=== PATIENT | female | born 1945 | race Caucasian/White ===

== ENCOUNTER 2023-12-25 02:10 | Inpatient (IN) ==
[2023-12-25 02:45] LABS: ABS Basophils 0.1 10^3/uL (0.0-0.1); ABS Lymphocytes 0.7 10^3/uL (1.0-4.8); ABS Monocytes 0.4 10^3/uL (0.0-0.9); ABS Neutrophils 8.9 10^3/uL (1.5-7.6); ABS Nucleated RBC 0.02 10^3/ul; Eosinophil % 0.4 %; Hematocrit 39.7 % (35-45); Hemoglobin 13.6 g/dL (11.5-14.3); Lymphocyte % 6.9 %; Mean Corpuscular Hemoglobin 31.5 pg (27-33); Mean Corpuscular Hgb Conc 34.3 g/dL (31-36); Mean Corpuscular Volume 91.8 fL (80-97); Mean Platelet Volume 8.8 fL (7.5-11.2); Nucleated Red Blood Cells % 0.2 %/100WBC (0.0-0.8); Platelet Count 311 10^3/uL (150-450); Red Blood Count 4.33 10^6/uL (3.63-4.92); Red Cell Distribution Width 13.6 % (12-17)
[2023-12-25 03:03] LABS: Albumin 4.5 g/dL (3.2-5.2); Albumin/Globulin Ratio 1.6 (1-3); C Reactive Protein 1.93 mg/L (<8.01); Creatinine, Serum 0.93 mg/dL (0.51-0.95); Globulin 2.9 g/dL (2-4); Total Bilirubin 0.4 mg/dL (0.2-1.0); Total Protein 7.4 g/dL (6.4-8.9); eGFR CKD-EPI 63.3 (>60)
[2023-12-25] MEDS: Famotidine IV 10 MG/ML 2 ml VIAL (20 mg) IV SLOW PU ONE (03:31)
[2023-12-25] MEDS: Lactated Ringers 1000 ml BAG 1,000 ML IV ONE (03:32)
[2023-12-25] MEDS: Ondansetron 4 mg VIAL 2 MG/ML 2 ml VIAL IV ONE (03:32)
[2023-12-25] MEDS: Iohexol 350 (CONTRAST) 500 ML MDV IV ONE (04:41)
[2023-12-25] MEDS ORDERED: Ondansetron 4 mg VIAL 2 MG/ML 2 ml VIAL IV PRN (08:06)
[2023-12-25] MEDS ORDERED: Morphine 2 MG/ML SYRINGE IV PRN (08:06)
[2023-12-25] MEDS: Lactated Ringers 1000 ml BAG 1,000 ML IV SCH (08:52)
[2023-12-26] MEDS ORDERED: Propofol 10 MG/ML 20 ML BTL ONE ×2 (10:12→14:04)
[2023-12-26] MEDS ORDERED: Dexamethasone IV 4 MG/ML VIAL 1 ml VIAL ONE (10:12)
[2023-12-26] MEDS ORDERED: Ondansetron 4 mg VIAL 2 MG/ML 2 ml VIAL ONE (10:12)
[2023-12-26] MEDS ORDERED: ROPIVACAINE 5 MG/ML 30 ML BTL (0.5%) ONE (10:12)
[2023-12-26] MEDS ORDERED: fentaNYL 250 mcg/5 ml 50 MCG/ML 5 ml VIAL (250 MCG) ONE (10:12)
[2023-12-26] MEDS ORDERED: Lidocaine 2% PF 5 ML VIAL ONE (10:12)
[2023-12-26] MEDS ORDERED: Rocuronium 50 mg VIAL 10 mg/ml 5 ml VIAL (50 mg) ONE (10:14)
[2023-12-26] MEDS ORDERED: Propofol 10 mg/ml 100 ML BTL 3,000 MG/300 ML BTL ONE (11:19)
[2023-12-26] MEDS ORDERED: Ondansetron 4 mg VIAL 2 MG/ML 2 ml VIAL IV PRN (13:15)
[2023-12-26] MEDS ORDERED: Naloxone 0.4 mg VIAL 0.4 mg/ml 1 ml VIAL IV PRN (13:15)
[2023-12-26] MEDS ORDERED: HYDROmorphone 1 MG/1 ML SYRINGE IV PRN (13:15)
[2023-12-26] MEDS ORDERED: Acetaminophen IV 1 GM/100ML 1,000 MG/100 ML BAG IV ONE (13:44)
[2023-12-26] MEDS ORDERED: fentaNYL 100 mcg/2 ml 50 MCG/ML VIAL ONE (14:49)
[2023-12-26] MEDS: fentaNYL 100 mcg/2 ml 50 MCG/ML VIAL IV PRN (14:50)
[2023-12-26] MEDS ORDERED: Naloxone 0.4 mg VIAL 0.4 mg/ml 1 ml VIAL IV PUSH PRN (15:09)
[2023-12-26] MEDS: HYDROmorphone PCA 20 MG/20 ML PCA.SYRING PCA SCH ×2 (15:50→17:35)
[2023-12-26] MEDS: Ertapenem 1 GM in NS 0.9% 50 ML IVPB ONE (18:13)
[2023-12-27] MEDS ORDERED: Acetaminophen IV 1 GM/100ML 1,000 MG/100 ML BAG IV SCH (10:30)
[2023-12-27 10:55] LABS: ABS Lymphocytes 0.5 10^3/uL (1.0-4.8); ABS Monocytes 0.7 10^3/uL (0.0-0.9); ABS Nucleated RBC 0.01 10^3/ul; Hematocrit 34.8 % (35-45); Hemoglobin 11.7 g/dL (11.5-14.3); Lymphocyte % 4.4 %; Mean Corpuscular Hgb Conc 33.7 g/dL (31-36); Mean Corpuscular Volume 92.1 fL (80-97); Mean Platelet Volume 8.8 fL (7.5-11.2); Platelet Count 270 10^3/uL (150-450); Red Blood Count 3.78 10^6/uL (3.63-4.92); Red Cell Distribution Width 13.7 % (12-17); White Blood Count 11.2 10^3/uL (3.8-11.8)
[2023-12-27 11:10] LABS: Creatinine, Serum 0.7 mg/dL (0.51-0.95); Magnesium 1.8 mg/dL (1.9-2.7); Phosphorus 3.6 mg/dL (2.5-5.0); Potassium 4.2 mmol/L (3.5-5.0)
[2023-12-27] MEDS: Acetaminophen IV 1 GM/100ML 1,000 MG/100 ML BAG IV SCH (11:28)
[2023-12-27] MEDS: Magnesium Sulfate 2 gm BAG 2 GM/50 ML BAG IVPB ONE (13:12)
[2023-12-27] MEDS: Heparin 5000 UNITS/ML 1 mL VIAL SUBCUT SCH (22:19)
[2023-12-28] MEDS ORDERED: Morphine 2 MG/ML SYRINGE IV PRN (13:33)
[2023-12-28] MEDS: D5W 1/2 NS 1000 ml BAG 1,000 ML IV SCH (14:45)
[2023-12-29 06:05] LABS: Hemoglobin 11.1 g/dL (11.5-14.3); Mean Corpuscular Hemoglobin 31.7 pg (27-33); Mean Corpuscular Hgb Conc 34.7 g/dL (31-36); Mean Corpuscular Volume 91.4 fL (80-97); Mean Platelet Volume 8.4 fL (7.5-11.2); Platelet Count 243 10^3/uL (150-450); Red Cell Distribution Width 13.5 % (12-17); White Blood Count 5.3 10^3/uL (3.8-11.8)
[2023-12-29 06:23] LABS: Creatinine, Serum 0.6 mg/dL (0.51-0.95); Potassium 3.5 mmol/L (3.5-5.0); eGFR CKD-EPI 92.4 (>60)
[2023-12-29] MEDS: Iohexol 300 (CONTRAST) 10 ML SDV IV ONE (11:14)
[2023-12-30 14:40] VITALS: BP 118/76
== END 2023-12-30 17:55 | disposition home or self-care (01) | DRG 331 ==
LOC: ED 02:10 → EDHOLD 08:06 → MED 11:08 → SSU 12:15
PROVIDERS: ADMIT Hospitalist; ATTEND Hospitalist